=== PATIENT | female | born 2000 | race Hispanic/Latino ===

== ENCOUNTER 2023-12-30 15:04 | Inpatient (IN) | payer MEDICAID, OTHER ==
[~2023-12-30 15:04] MED LIST: Bupivacaine 0.25% HCL 30 ML VIAL ONE; Bupivacaine HCl 0.5%/Epinephrine 1:200,000/PF 30 ml Vial ONE; Bupivacaine PF 0.5% 30 ML VIAL ONE
[2023-12-30] MEDS ORDERED: Carboprost 250 MCG/ML AMP IM PRN (21:23)
[2023-12-30] MEDS ORDERED: Misoprostol 200 MCG TAB PR PRN (21:23)
[2023-12-30] MEDS ORDERED: Ibuprofen 800 MG TAB PO PRN (21:23)
[2023-12-30] MEDS ORDERED: Diphenoxylate HCl/Atropine Tablet PO PRN (21:23)
[2023-12-30] MEDS ORDERED: Ondansetron PF 4 MG/2 ML Vial IVP PRN (21:23)
[2023-12-30] MEDS ORDERED: HYDROcodone/Acetaminophen 5/325 mg Tablet PO PRN (21:23)
[2023-12-30] MEDS ORDERED: Methylergonovine 0.2 MG/ML VIAL IM PRN (21:23)
[2023-12-30] MEDS ORDERED: Tranexamic Acid 1,000 MG/10 ML VIAL IVP PRN (21:23)
[2023-12-30] MEDS ORDERED: Promethazine HCl 25 MG/ML VIAL IM PRN (21:23)
[2023-12-30] MEDS ORDERED: Lidocaine 1% (PF) 30 ML VIAL SC PRN (21:23)
[2023-12-30] MEDS ORDERED: Acetaminophen 500 MG TAB PO PRN (21:23)
[2023-12-30] MEDS ORDERED: hydrALAZINE 20 MG/ML VIAL SLOW IVP PRN (21:23)
[2023-12-30 23:10] VITALS: BMI 45.6
[2023-12-30 23:16] LABS: Hematocrit 33.2 % (34.9-44.5); Hemoglobin 11.7 g/dL (12.0-15.5); Mean Corpuscular HGB CONC 35.2 g/dL (32.0-36.0); Mean Corpuscular Hemoglobin 33.2 pg (27.0-33.0); Mean Corpuscular Volume 94.3 fL (81.6-98.3); Platelet Count 226 10x3/uL (150-450); RBC Distribution Width 12.6 % (11.5-14.5); Red Blood Cell (RBC) Count 3.52 10x6/uL (3.90-5.03); White Blood Cell (WBC) Count 12.2 10x3/uL (3.5-10.5)
[2023-12-30 23:46] LABS: Syphilis Antibody Nonreactive (Nonreactive); Syphilis Antibody Index 0.03 S/CO (<1.00 Non-Reactive)
[2023-12-30 23:53] LABS: HBsAg Index 0.17 S/CO (0-0.99); Hep B Surf Ag - L&D Non-Reactive S/CO (NonReactive)
[2023-12-30] MEDS ORDERED: Oxytocin 30 units/NS 500 ML 500 ML IV SCH ×2 (23:59)
[2023-12-31] MEDS: Lactated Ringer's 1,000 ML IV SCH (11:13)
[2023-12-31] MEDS: Misoprostol 100 MCG TAB VAG SCH (23:39)
[2024-01-01] MEDS: Misoprostol 100 MCG TAB VAG SCH (04:18)
[2024-01-01] MEDS: fentaNYL 50 mcg/mL 1 mL Vial SLOW IVP PRN (10:01)
[2024-01-01] MEDS: Oxytocin 30 units/NS 500 ML 500 ML IV SCH (11:18)
[2024-01-01] MEDS ORDERED: Promethazine HCl 25 MG/ML VIAL IM PRN ×2 (11:45→23:28)
[2024-01-01] MEDS ORDERED: Acetaminophen 325 MG TAB PO PRN (11:45)
[2024-01-01] MEDS ORDERED: Naloxone HCl 0.4 mg/ml Vial IVP PRN ×4 (11:45→23:28)
[2024-01-01] MEDS ORDERED: diphenhydrAMINE 50 MG/ML VIAL IVP PRN ×2 (11:45→23:28)
[2024-01-01] MEDS ORDERED: fentaNYL 2 mcg/Ropivacaine 0.2% Epidural 100 ML CADD EPIDURAL SCH (11:45)
[2024-01-01] MEDS ORDERED: Communication Order-Pharmacy FS SCH ×2 (11:45→23:30)
[2024-01-01] MEDS ORDERED: Lactated Ringer's 500 ML IV PRN (11:45)
[2024-01-01] MEDS ORDERED: Moisturizing Cream (Eucerin) 113 GM JAR TOP PRN ×2 (11:45→23:28)
[2024-01-01] MEDS ORDERED: ePHEDrine Sulfate 50 MG/10 ML VIAL SLOW IVP PRN (11:45)
[2024-01-01] MEDS: fentaNYL/Ropivacaine Epidural 100 ML ONE (21:30)
[2024-01-01] MEDS: Ondansetron PF 4 MG/2 ML Vial IVP PRN (22:46)
[2024-01-01] MEDS ORDERED: Meperidine HCl/PF 25 MG (1 mL) VIAL SLOW IVP PRN (23:28)
[2024-01-01] MEDS ORDERED: Morphine 4 MG/ML VIAL SLOW IVP PRN (23:28)
[2024-01-01] MEDS ORDERED: Ondansetron PF 4 MG/2 ML Vial IVP PRN ×2 (23:28)
[2024-01-01] MEDS ORDERED: Ketorolac Tromethamine 30 MG (1 mL) VIAL IVP PRN (23:28)
[2024-01-01] MEDS ORDERED: fentaNYL 50 mcg/mL 1 mL Vial SLOW IVP PRN (23:28)
[2024-01-01] MEDS ORDERED: Ketorolac Tromethamine 30 MG (1 mL) VIAL IVP SCH (23:30)
[2024-01-02] MEDS ORDERED: Acetaminophen 325 MG TAB PO PRN (05:00)
[2024-01-02] MEDS ORDERED: Lanolin Ointment 7 GM TUBE TOP PRN (05:00)
[2024-01-02] MEDS ORDERED: diphenhydrAMINE 25 MG CAP PO PRN (05:00)
[2024-01-02] MEDS ORDERED: Promethazine HCl 25 MG/ML VIAL IM PRN (05:00)
[2024-01-02] MEDS ORDERED: hydrALAZINE 20 MG/ML VIAL SLOW IVP PRN (05:00)
[2024-01-02] MEDS ORDERED: Ondansetron PF 4 MG/2 ML Vial IVP PRN (05:00)
[2024-01-02] MEDS ORDERED: Bisacodyl 10 MG SUPP PR PRN (05:00)
[2024-01-02] MEDS: fentaNYL 50 mcg/mL 1 mL Vial ONE (05:11)
[2024-01-02] MEDS: fentaNYL/Ropivacaine Epidural 100 ML ONE (05:11)
[2024-01-02] MEDS: Dexamethasone 10 MG/ML VIAL ONE (05:11)
[2024-01-02] MEDS: CEFAZOLIN 2 GM VIAL ONE (05:11)
[2024-01-02] MEDS: Azithromycin 500 MG VIAL ONE (05:11)
[2024-01-02] MEDS: Methylergonovine 0.2 MG/ML VIAL ONE (05:12)
[2024-01-02] MEDS: Carboprost 250 MCG/ML AMP ONE (05:12)
[2024-01-02] MEDS: Ondansetron PF 4 MG/2 ML Vial ONE (05:12)
[2024-01-02] MEDS: Oxytocin 30 units/NS 500 ML 500 ML ONE (05:12)
[2024-01-02] MEDS: Tranexamic Acid 1,000 MG/10 ML VIAL ONE (05:12)
[2024-01-02] MEDS: PHENYLEPHRINE-NS 100 MCG/ML 10 ML SYRINGE ONE (05:12)
[2024-01-02] MEDS: Oxytocin 10 UNITS/ML VIAL ONE (05:12)
[2024-01-02] MEDS: Morphine PF 10 MG/10 ML VIAL ONE (05:12)
[2024-01-02] MEDS: Misoprostol 200 MCG TAB ONE (05:12)
[2024-01-02] MEDS: Ketorolac Tromethamine 30 MG (1 mL) VIAL IVP PRN (05:48)
[2024-01-02] MEDS: Terbutaline Sulfate 1 MG/ML VIAL ONE (06:27)
[2024-01-02] MEDS: Misoprostol 100 MCG TAB ONE (06:27)
[2024-01-02] MEDS: Boostrix 0.5 ML (Tdap) VIAL (>/=7 yrs of age) IM ONE (06:45)
[2024-01-02] MEDS: Prenatal Vitamin 1 TAB PO SCH (08:50)
[2024-01-02] MEDS: Docusate 100 MG CAP PO SCH (08:51)
[2024-01-02] MEDS ORDERED: Meperidine HCl/PF 25 MG (1 mL) VIAL IM PRN (11:30)
[2024-01-02] MEDS: Simethicone Chewable 80 MG TAB PO PRN (13:25)
[2024-01-02] MEDS: Ferrous Sulfate 325 MG TAB PO SCH (14:55)
[2024-01-02] MEDS: Naloxone HCl 0.4 mg/ml Vial IV PRN (18:12)
[2024-01-02] MEDS: HYDROcodone/Acetaminophen 5/325 mg Tablet PO PRN (18:15)
[2024-01-02] MEDS: Ibuprofen 800 MG TAB PO SCH (21:43)
[2024-01-03 05:01] LABS: Hematocrit 24.2 % (34.9-44.5); Hemoglobin 8.2 g/dL (12.0-15.5); Mean Corpuscular HGB CONC 33.9 g/dL (32.0-36.0); Mean Corpuscular Hemoglobin 32.5 pg (27.0-33.0); Mean Platelet Volume 12.8 fL (7.4-10.4); Platelet Count 169 10x3/uL (150-450); Red Blood Cell (RBC) Count 2.52 10x6/uL (3.90-5.03); White Blood Cell (WBC) Count 13.3 10x3/uL (3.5-10.5)
[2024-01-03] MEDS: HYDROcodone/Acetaminophen 5/325 mg Tablet PO PRN (09:00)
[2024-01-04 08:06] VITALS: TEMP 97.8
[2024-01-04 11:31] VITALS: BP 107/56
== END 2024-01-04 14:55 | disposition home or self-care (01) | DRG 788 ==
LOC: CSHLD 19:58 → CSHPP 01-02 03:04
PROVIDERS: ADMIT Family Medicine; ATTEND Family Medicine
PROC: 10D00Z1 Extraction of Products of Conception, Low, Open Approach (ICD-10-PCS; principal; 2024-01-02)
PROC: 3E0334Z Introduction of Serum, Toxoid and Vaccine into Peripheral Vein, Percutaneous Approach (ICD-10-PCS; 2024-01-02)
DX: O99.214 Obesity complicating childbirth (principal); E66.01 Morbid (severe) obesity due to excess calories; Z79.82 Long term (current) use of aspirin; Z79.899 Other long term (current) drug therapy; Z3A.40 40 weeks gestation of pregnancy; Z37.0 Single live birth; O62.1 Secondary uterine inertia; O64.0XX0 Obstructed labor due to incomplete rotation of fetal head, not applicable or unspecified
CPT/HCPCS: 36415; 51702; 85027; 85461; 86780; 86850; 86900; 86901; 87340; 90384; 96372; C1889; J0665; J1100; J1885; J2274; J2310; J2405; J2590; J3010; J7120